=== PATIENT | female | born 1990 | race Caucasian/White ===

== ENCOUNTER 2017-08-13 15:30 | Emergency (ER) | payer BC ==
[~2017-08-13] VITALS: Ht 170.2 cm; Wt 68.0 kg
[2017-08-13 16:06] VITALS: BP 109/78
== END 2017-08-13 19:05 | disposition left against medical advice (07) ==
LOC: ER 15:30
DX: R22.0 Localized swelling, mass and lump, head (principal); R20.0 Anesthesia of skin; Y92.9 Unspecified place or not applicable; T39.015A Adverse effect of aspirin, initial encounter; Z53.21 Procedure and treatment not carried out due to patient leaving prior to being seen by health care provider